=== PATIENT | male | born 1970 | race Caucasian/White ===

== ENCOUNTER 2018-07-08 07:38 | Observation (INO) | payer BC ==
[2018-07-08 08:13] LABS: #Basophils 0.2 thou/uL (0.0-0.2); #Eosinphils 0.3 thou/uL (0.0-0.7); #Monocytes 0.6 thou/uL (0.11-0.59); #Neutrophils 5.6 thou/uL (1.40-6.50); %Basophils 1.6 % (0.0-1.0); %Eosinophils 2.8 % (0.0-10.0); %Lymphocytes 31.5 % (21.0-51.0); %Monocytes 6.1 % (0.0-10.0); Hemoglobin 16.6 g/dL (14.0-18.0); Mean Corpuscular Hemoglobin 27.9 pg (27.0-31.0); Mean Corpuscular Volume 84.5 fL (78.0-98.0); Mean Platelet Volume 8.5 fL (7.4-10.4); Platelet Count 163 thou/uL (130-400); RBC Distribution Width 12.5 % (11.5-14.5); Red Blood Cell (RBC) Count 5.94 mill/uL (4.70-6.10); White Blood Cell (WBC) Count 9.6 thou/uL (4.8-10.8)
[2018-07-08 08:23] LABS: ALT (SGPT) 57 U/L (8-55); AST (SGOT) 28 U/L (5-34); Albumin 4.4 g/dL (3.5-5.0); Alkaline Phosphatase 54 U/L (40-150); Anion Gap 17 mmol/L (10-20); BUN (Urea Nitrogen) 14 mg/dL (8.9-20.6); Bilirubin, Total 0.6 mg/dL (0.2-1.2); CK (CPK) 161 U/L (30-200); Calc. Creatinine Clearance 0 mL/min (70-130); Calcium 9.6 mg/dL (7.8-10.44); Carbon Dioxide 21 mmol/L (22-29); Chloride 107 mmol/L (98-107); Estimated GFR-MDRD Greater than 90; Globulin 2.8 g/dL (2.4-3.5); Glucose 120 mg/dL (70-105); Potassium 4.5 mmol/L (3.5-5.1); Protein, Total 7.2 g/dL (6.0-8.3); Sodium 140 mmol/L (136-145)
--- NOTE | 2018-07-08 08:43 | RAD ---
PORTABLE AP CHEST X-RAY: 07/08/2018 HISTORY: Headache. Chest pain. COMPARISON: 01/21/2017 FINDINGS: The cardiac silhouette and pulmonary vasculature are within normal limits for the portable technique of the study. The lungs are clear. The chest is stable from prior exam. IMPRESSION: No acute cardiopulmonary process. POS: [facility]
[2018-07-08] MEDS ORDERED: Aspirin 325 MG TAB ONE (08:46)
[2018-07-08] MEDS ORDERED: Lisinopril 10 MG TAB ONE (08:46)
[2018-07-08] MEDS ORDERED: Hydrochlorothiazide 25 MG TAB ONE (08:46)
[2018-07-08 11:15] LABS: Troponin I Less than 0.010 ng/mL (< 0.028)
[2018-07-08 14:45] LABS: Troponin I Less than 0.010 ng/mL (< 0.028)
--- NOTE | 2018-07-13 21:02 | EKG ---
Test Reason : CHEST PAIN Blood Pressure : / mmHG Vent. Rate : 073 BPM Atrial Rate : 073 BPM P-R Int : 146 ms QRS Dur : 092 ms QT Int : 366 ms P-R-T Axes : 050 011 024 degrees QTc Int : 403 ms Normal sinus rhythm Normal ECG Confirmed by SARI STEPHENS DO ([id number]), manager editorial RASHMI OWENS ([id number]) on 07/13/2018 9:02:44 PM Referred By: DR. STEPHENS Confirmed By:SARI STEPHENS DO
== END 2018-07-08 15:19 | disposition home or self-care (01) ==
LOC: SCSER 07:38 → SCSEROBS 08:48 → UNDOADMOB 09:04 → UNDODISOB 15:19
PROVIDERS: ADMIT Emergency Medicine; ATTEND Emergency Medicine
DX: R07.89 Other chest pain (principal); J44.9 Chronic obstructive pulmonary disease, unspecified; I10 Essential (primary) hypertension; E11.9 Type 2 diabetes mellitus without complications; E78.5 Hyperlipidemia, unspecified; F41.9 Anxiety disorder, unspecified; E66.9 Obesity, unspecified; Z87.891 Personal history of nicotine dependence; Z79.899 Other long term (current) drug therapy; Z88.8 Allergy status to other drugs, medicaments and biological substances
CPT/HCPCS: 36415; 71045; 80053; 80061; 82550; 84484; 85025; 93005; G0378; J7620